=== PATIENT | female | born 1965 | race Caucasian/White ===

== ENCOUNTER 2019-02-03 15:23 | Outpatient (CLI) | payer OTHER ==
--- NOTE | 2019-02-04 06:49 | MMO ---
Bilateral MAMMO Bilat Screen [facility]. CLINICAL HISTORY: Patient is 53 years old and is seen for screening. The patient has the following family history of breast cancer: mother, at age 45. VIEWS: The views performed were: bilateral craniocaudal with tomosynthesis; bilateral mediolateral oblique with tomosynthesis; and bilateral exaggerated craniocaudal. FILMS COMPARED: The present examination has been compared to a prior imaging study performed at [facility] on 01/31/2017. MAMMOGRAM FINDINGS: The breasts are heterogeneously dense, which could obscure a lesion on mammography. There are no suspicious masses, suspicious calcifications, or new areas of architectural distortion. IMPRESSION: THERE IS NO MAMMOGRAPHIC EVIDENCE OF MALIGNANCY. A ROUTINE FOLLOW-UP MAMMOGRAM IN 1 YEAR IS RECOMMENDED. THE RESULTS OF THIS EXAM WERE SENT TO THE PATIENT. ACR BI-RADS Category 1 - Negative MAMMOGRAPHY NOTE: 1. A negative mammogram report should not delay a biopsy if a dominant of clinically suspicious mass is present. 2. Approximately 10% to 15% of breast cancers are not detected by mammography. 3. Adenosis and dense breasts may obscure an underlying neoplasm. Reported by: ARGELIA SPICER MD Electonically Signed: [id number]
== END 2019-02-03 15:24 | disposition home or self-care (01) ==
LOC: BICMAMMO 15:23
PROVIDERS: ATTEND Family Medicine
DX: Z12.31 Encounter for screening mammogram for malignant neoplasm of breast (principal); Z80.3 Family history of malignant neoplasm of breast
CPT/HCPCS: 77063; 77067

== ENCOUNTER 2019-03-20 15:20 | Outpatient (CLI) | payer OTHER ==
--- NOTE | 2019-03-20 15:45 | BD ---
EXAM: DEXA bone density examination HISTORY: 53-year-old postmenopausal female for screening COMPARISON: None FINDINGS: L1--bone mineral density 0.932 g/sq cm; T score -0.5 L2--bone mineral density 0.989 g/sq cm; T score -0.4 L3--bone mineral density 1.010 g/sq cm; T score -0.7 L4--bone mineral density 1.025 g/sq cm; T score -0.3 Total L1-L4--bone mineral density 0.992 g/sq cm; T score -0.5 Left femoral neck--bone mineral density0.776; T score -0.7 Total proximal left femur--bone mineral density 1.084; T score 1.2 IMPRESSION: Normal bone mineral density.
== END 2019-03-20 15:21 | disposition home or self-care (01) ==
LOC: BICMAMMO 15:20
PROVIDERS: ATTEND Obstetrics & Gynecology
DX: Z13.820 Encounter for screening for osteoporosis (principal)
CPT/HCPCS: 77080

== ENCOUNTER 2020-09-08 19:57 | Emergency (ER) | payer OTHER ==
[2020-09-08] MEDS ORDERED: Boostrix 0.5 ML (Tdap) VIAL ONE (21:12)
[2020-09-08] MEDS ORDERED: Rabies Vaccine Human 2.5 UNITS VIAL IM ONE (21:30)
[2020-09-08] MEDS ORDERED: Bacitracin 1 PK ONE (23:09)
== END 2020-09-08 23:40 | disposition home or self-care (01) ==
LOC: ERS 19:57
DX: S81.051A Open bite, right knee, initial encounter (principal); W54.0XXA Bitten by dog, initial encounter
CPT/HCPCS: 90376; 90471; 90472; 90675; 90715; 96372

== ENCOUNTER → 2020-09-15 | Day surgery (SDC) | payer OTHER ==
[~2020-09-15] MED LIST: Rabies Vaccine Human 2.5 UNITS VIAL IM ONE
== END ==
LOC: ER/OP 15:10
DX: Z23 Encounter for immunization (principal)
CPT/HCPCS: 90471; 90675

== ENCOUNTER → 2020-09-22 | Day surgery (SDC) | payer OTHER | LOC: ER/OP 15:10 | DX: Z23 Encounter for immunization (principal) | CPT/HCPCS: 90471; 90675 ==

== ENCOUNTER 2020-09-29 15:16 | Outpatient (CLI) | payer OTHER | END 2020-09-29 15:17 | disposition home or self-care (01) | LOC: BICMAMMO 15:16 | PROVIDERS: ATTEND Obstetrics & Gynecology | DX: Z12.31 Encounter for screening mammogram for malignant neoplasm of breast (principal); Z80.3 Family history of malignant neoplasm of breast | CPT/HCPCS: 77063; 77067 ==

== ENCOUNTER → 2020-10-06 | Day surgery (SDC) | payer OTHER | LOC: ER/OP 15:09 | DX: Z23 Encounter for immunization (principal) | CPT/HCPCS: 90471; 90675 ==

== ENCOUNTER 2021-10-17 15:16 | Outpatient (CLI) | payer BC | END 2021-10-17 15:17 | disposition home or self-care (01) | LOC: BICMAMMO 15:16 | PROVIDERS: ATTEND Obstetrics & Gynecology | DX: Z12.31 Encounter for screening mammogram for malignant neoplasm of breast (principal); Z80.3 Family history of malignant neoplasm of breast | CPT/HCPCS: 77063; 77067 ==